=== PATIENT | female | born 2000 | race Caucasian/White ===

== ENCOUNTER 2024-02-29 18:57 | Inpatient (IN) | payer OTHER ==
[2024-02-29] MEDS ORDERED: Naloxone 0.4 MG/ML SDV IVPUSH PRN (19:46)
[2024-02-29] MEDS ORDERED: Sodium Chloride 0.9% 10 ML Syringe FLUSH PRN (19:46)
[2024-02-29] MEDS: Ondansetron 4 MG/2 ML SDV IVPUSH ONE (19:59)
[2024-02-29] MEDS: Morphine 4 MG/ML Syringe IVPUSH ONE ×2 (19:59→21:34)
[2024-02-29] MEDS: Sodium Chloride 0.9% 1,000 ML IV ONE (20:00)
[2024-02-29] MEDS: Morphine 4 MG/ML Syringe ONE (20:06)
[2024-02-29] MEDS: Ondansetron 4 MG/2 ML SDV ONE (20:07)
[2024-02-29] MEDS: Sodium Chloride 0.9% 1,000 ML ONE (20:07)
[2024-02-29 20:16] LABS: BASOPHILS ABSOLUTE AUTO 0.1 K/mm3 (0.0-0.2); BASOPHILS PERCENT AUTO 0.7 % (0.0-1.0); EOSINOPHILS ABSOLUTE AUTO 0.3 K/mm3 (0.0-0.4); EOSINOPHILS PERCENT AUTO 2.8 % (0.0-6.0); HEMATOCRIT 42.3 % (37.0-47.0); HEMOGLOBIN 13.9 gm/dl (12.0-16.0); IMMATURE GRAN ABSOLUTE AUTO 0.03 K/mm3 (0.00-0.05); IMMATURE GRAN PERCENT AUTO 0.2 % (0.0-0.4); LYMPHOCYTES ABSOLUTE AUTO 2.9 K/mm3 (1.0-4.8); LYMPHOCYTES PERCENT AUTO 24.2 % (24.0-44.0); MEAN CORPUSCULAR HEMOGLOBIN 29.6 pg (28.0-32.0); MEAN CORPUSCULAR HGB CONC 32.9 g/dl (32.0-36.0); MEAN CORPUSCULAR VOLUME 90.2 fl (83.0-99.0); MEAN PLATELET VOLUME 10.1 fl (9.4-12.3); MONOCYTES ABSOLUTE AUTO 0.6 K/mm3 (0.0-0.8); MONOCYTES PERCENT AUTO 5.3 % (0.0-8.0); NEUTROPHILS PERCENT AUTO 66.8 % (41.0-71.0); PLATELET COUNT,PLT 252 K/mm3 (150-400); RED BLOOD CELL COUNT 4.69 M/mm3 (4.10-5.30); WHITE BLOOD CELL COUNT,WBC 12.05 K/mm3 (3.9-11.3)
[2024-02-29 20:31] LABS: A/G RATIO 1.1 (1-2); ALANINE AMINOTRANSFERASE,ALT 20 U/L (14-59); ALKALINE PHOSPHATASE 52 U/L (46-116); BILIRUBIN TOTAL 0.3 mg/dL (0.2-1.0); BLOOD UREA NITROGEN,BUN 8 mg/dL (7-18); BUN/CREATININE RATIO 11.4 (14-18); CALCIUM 9.4 mg/dL (8.5-10.1); CARBON DIOXIDE,CO2 25 mEq/L (21-32); CHLORIDE,CL 106 mEq/L (98-107); CREATININE 0.7 mg/dL (0.55-1.02); ESTIMATED GFR 125 mL/min (>60); GLUCOSE RANDOM 96 mg/dL (70-99); LIPASE 36 U/L (16-77); PROTEIN TOTAL,TP 7.5 g/dl (6.4-8.2); SODIUM,NA 138 mEq/L (136-145)
[2024-02-29 20:36] LABS: ASPARTATE AMNIOTRANSFERASE,AST 22 U/L (15-37)
[2024-02-29] MEDS: Iopamidol 612 MG/ML 100 ML Bottle IVPUSH ONE (21:36)
[2024-02-29] MEDS: Sodium Chloride 0.9% 10 ML Syringe FLUSH ONE (21:36)
[2024-02-29 21:39] LABS: APPEARANCE,URINE CLEAR (Clear); BILIRUBIN,URINE NEGATIVE (Negative); COLOR,URINE YELLOW (Yellow); GLUCOSE,URINE NEGATIVE (Negative); KETONES,URINE NEGATIVE (Negative); LEUKOCYTE ESTERASE,URINE NEGATIVE (Negative); NITRITE,URINE NEGATIVE (Negative); OCCULT BLOOD,URINE NEGATIVE (Negative); PROTEIN,URINE NEGATIVE (Negative); UROBILINOGEN,URINE 0.2 (0.2-1.0)
[2024-03-01] MEDS: Piperacillin/Tazobactam 3.375 GM in Sodium Chloride 0.9% 100 ML IV ONE (00:04)
[2024-03-01] MEDS: Morphine 4 MG/ML Syringe IVPUSH PRN (01:37)
[2024-03-01] MEDS: Piperacillin/Tazobactam 4.5 GM in Sodium Chloride 0.9% 100 ML IV ONE (02:14)
[2024-03-01] MEDS: Dextrose 5%-0.45% NaCl 1,000 ML IV SCH (03:02)
[2024-03-01] MEDS: Piperacillin/Tazobactam 4.5 GM in Sodium Chloride 0.9% 100 ML IV SCH ×2 (03:09→06:42)
[2024-03-01] MEDS: Ondansetron 4 MG/2 ML SDV IVPUSH PRN (07:46)
[2024-03-01] MEDS ORDERED: Lidocaine 1% 5 ML VIAL ONE (07:54)
[2024-03-01] MEDS ORDERED: fentaNYL 250 MCG/5 ML SDV ONE (07:54)
[2024-03-01] MEDS ORDERED: Propofol 200 MG/20 ML SDV ONE (07:54)
[2024-03-01] MEDS ORDERED: Rocuronium 50 MG/5 ML Vial ONE ×2 (07:54→09:42)
[2024-03-01] MEDS ORDERED: Ondansetron 4 MG/2 ML SDV ONE (07:54)
[2024-03-01] MEDS ORDERED: Midazolam 1 MG/ML 2 ML SDV ONE (07:54)
[2024-03-01] MEDS ORDERED: dexmedeTOMIDine HCl 200 MCG/2 ML SDV ONE (08:31)
[2024-03-01] MEDS ORDERED: ePHEDrine 50 MG/ML SDV ONE (08:48)
[2024-03-01] MEDS ORDERED: Lactated Ringers 1,000 ML ONE (08:48)
[2024-03-01] MEDS ORDERED: Dexamethasone 4 MG/ML 5 ML MDV ONE (08:52)
[2024-03-01] MEDS ORDERED: Ondansetron 4 MG/2 ML SDV IVPUSH PRN (09:20)
[2024-03-01] MEDS ORDERED: fentaNYL 100 MCG/2 ML SDV IVPUSH PRN (09:20)
[2024-03-01] MEDS ORDERED: HYDROmorphone 0.5 MG/0.5 ML Syringe ONE (09:47)
[2024-03-01] MEDS ORDERED: Metoclopramide 10 MG/2 ML SDV ONE (09:49)
[2024-03-01] MEDS ORDERED: Sugammadex Sodium 200 MG/2 ML VIAL IV ONE (09:55)
[2024-03-01] MEDS ORDERED: Ketorolac 30 MG/ML SDV ONE (09:56)
[2024-03-01] MEDS: Lidocaine 1% 20 ML MDV ONE (10:02)
[2024-03-01] MEDS: HYDROmorphone 0.5 MG/0.5 ML Syringe IVPUSH PRN (12:04)
[2024-03-01] MEDS: Lactated Ringers 1,000 ML IV SCH (12:06)
[2024-03-01 18:07] VITALS: BP 109/58; PULSE 59
== END 2024-03-01 17:15 | disposition home or self-care (01) | DRG 419 ==
LOC: JD.ED 18:57 → JD.MS 23:48
PROVIDERS: ADMIT Student in an Organized Health Care Education/Training Program; ATTEND Student in an Organized Health Care Education/Training Program
PROC: 0FT44ZZ Resection of Gallbladder, Percutaneous Endoscopic Approach (ICD-10-PCS; principal; 2024-03-01 09:05)
DX: K81.0 Acute cholecystitis (principal); K81.1 Chronic cholecystitis; D72.829 Elevated white blood cell count, unspecified; G43.909 Migraine, unspecified, not intractable, without status migrainosus; F17.210 Nicotine dependence, cigarettes, uncomplicated; Z90.89 Acquired absence of other organs; Z98.890 Other specified postprocedural states; Z79.899 Other long term (current) drug therapy
CPT/HCPCS: 00790; 36415; 74177; 74177-26; 76705; 76705-26; 80053; 81003; 83605; 83690; 84703; 85025; 94762; 96361; 96374; 96375; 96376; 99285; 99285-25; J1100; J1170; J1885; J2250; J2270; J2405; J2543; J2704; J2765; J3010; J3490; J7030; J7120; J7799; Q9967